=== PATIENT | female | born 1970 | race Caucasian/White ===

== ENCOUNTER 2017-07-24 01:27 | Emergency (ER) | payer BC ==
[~2017-07-24] VITALS: Ht 174 cm; Wt 81.5 kg
[~2017-07-24 01:27] MED LIST: ASPI81TA3 PO; METO-448 PO
[2017-07-24 01:36] VITALS: Ht 174 cm; Wt 81.5 kg
[2017-07-24] MEDS ORDERED: HYDROmorphONE 1 MG/ML SYG IV STA (02:25)
[2017-07-24] MEDS ORDERED: ONDANSETRON 4 MG INJ IV STA (02:25)
[2017-07-24] MEDS ORDERED: AZIT250T6 PO (02:49)
[2017-07-24] MEDS ORDERED: MULTI PO (02:49)
[2017-07-24 03:06] LABS: ABNORMAL IP MESSAGE 1; BASOPHILS % 0.4 % (0.0-2.0); EOSINOPHILS # 0.1 10^3/ul (0.0-0.5); HEMATOCRIT 33.3 % (37.0-47.0); HEMOGLOBIN 10.8 g/dl (12.0-16.0); LYMPHOCYTES # 0.6 10^3/ul (0.8-2.9); LYMPHOCYTES % 5.2 % (15.0-51.0); MEAN CORPUSCULAR HEMOGLOBIN 27.8 pg (29.0-33.0); MEAN CORPUSCULAR HGB CONC 32.4 g/dl (32.0-37.0); MEAN CORPUSCULAR VOLUME 85.8 fl (82.0-101.0); MEAN PLATELET VOLUME 9.5 fl (7.4-10.4); MONOCYTE # 0.6 10^3/ul (0.3-0.9); MONOCYTES % 5.3 % (0.0-11.0); NEUTROPHILS % 87.8 % (39.0-77.0); PLATELET COUNT 247 10^3/UL (140-415); RED BLOOD COUNT 3.88 10^6/ul (4.20-5.40); RED CELL DISTRIBUTION WIDTH 13.1 % (11.5-14.5); WHITE BLOOD COUNT 10.8 10^3/ul (4.8-10.8)
[2017-07-24 03:10] LABS: POSITIVE DIFF @See below
[2017-07-24 03:21] LABS: ALBUMIN 3.8 g/dl (3.3-4.9); ALBUMIN/GLOBULIN RATIO 1.18; BILIRUBIN,INDIRECT 0.3 mg/dl (0-1.1); BILIRUBIN,TOTAL 0.3 mg/dl (0.2-1.3); CALCIUM 8.9 mg/dl (8.4-10.2); CREATININE 0.95 mg/dl (0.44-1.00); POTASSIUM 3.4 mmol/L (3.5-5.1)
--- NOTE | 2017-07-24 03:22 | RADRPT ---
PROCEDURE: ULTRASOUND LIMITED ABDOMEN CLINICAL INDICATION: 47-year-old female with abdominal pain. TECHNIQUE: Multiple sonographic of the right upper quadrant of the abdomen were obtained. The imag es were reviewed on a PACS workstation. COMPARISON: None. FINDINGS: The pancreas is partially visualized and is otherwise without abnormal echogenicity. The liver displays normal echogenicity. The liver measures cm in length. No evidence of intrahepat ic biliary ductal dilatation is seen. The portal and hepatic veins are unremarkable. The gallbladder is filled with echogenic sludge and shadowing stones. The gallbladder wall thicknes s is within normal limits measuring 2.8 mm. No pericholecystic fluid is seen. The common bile duct m easures 2.8 mm and is not dilated. The right kidney displays normal echogenicity. The right kidney measures 11.1 cm in maximal length. No caliectasis or hydronephrosis is seen. No free fluid is seen. IMPRESSION: Cholelithiasis. .Gerardo Preston MD, MD Date Time Electronically viewed and signed by .Gerardo Preston MD, on 07/24/2017 03:21 .M/
[2017-07-24] MEDS ORDERED: TRAM50TA2 PO (04:07)
[2017-07-24] MEDS ORDERED: DICY10CA60 PO (04:07)
--- NOTE | 2017-07-24 04:09 | ERD ---
ER Documentation Chief Complaint Date/Time DATE: 07/24/17 TIME: 04:08 Chief Complaint RUQ belly pain radiating to the back 30 mins ago, hx gastric bypass HPI Is a 47-year-old female complains of pain in the epigastric and right upper quadrant region radiating to the right back onset a few hours prior to arrival. She says she has had this off and on for several months now. She does seem to be associated after food intake. She is nauseated but no vomiting no diarrhea she does have some bloating no chest pain shortness of breath. Pain described as sharp and crampy. ROS All systems reviewed and are negative except as per history of present illness. Medications Home Meds Active Scripts Tramadol HCl (Tramadol HCl) 50 Mg Tablet, 50 MG PO Q6, #20 TAB Prov:VICKIE HERNANDEZ DO 07/24/17 Dicyclomine Hcl* (Bentyl*) 10 Mg Capsule, 20 MG PO QID, #60 CAP Prov:VICKIE HERNANDEZ DO 07/24/17 Reported Medications Multivitamins* (Theragran*) 1 Tab Tab, 1 TAB PO DAILY, TAB 07/24/17 Azithromycin* (Azithromycin*) 250 Mg Tablet, 250 MG PO DAILY, #4 TAB 07/24/17 Discontinued Scripts Metoprolol Tartrate* (Lopressor*) 25 Mg Tab, 12.5 MG PO BID for 30 Days, TAB Prov:PAOLA CARDOZA MD 07/06/15 Aspirin (Aspirin) 81 Mg Chew, 81 MG PO DAILY for 30 Days, TAB Prov:PAOLA CARDOZA MD 07/06/15 Allergies Allergies: Coded Allergies: codeine (Unverified Allergy, Severe, VOMITING, 07/24/17) PMhx/Soc History of Surgery: Yes (; GASTRIC BYPASS- 14YRS AGO) Anesthesia Reaction: No Hx Neurological Disorder: No Hx Respiratory Disorders: No Hx Cardiac Disorders: No Hx Psychiatric Problems: Yes (DEPRESSION) Hx Miscellaneous Medical Probl: No Hx Alcohol Use: No Hx Substance Use: No Hx Tobacco Use: No Smoking Status: Never smoker FmHx Family History: No coronary disease Physical Exam Vitals Vital Signs Date Time Temp Pulse Resp B/P Pulse Ox O2 Delivery O2 Flow Rate FiO2 07/24/17 03:39 63 18 120/77 95 Room Air 8/31/17 01:36 98.1 58 18 122/60 98 Physical Exam Const: Well-developed, well-nourished Head: Atraumatic, normocephalic Eyes: Normal Conjunctiva, PERRLA, EOMI, normal sclera, no nystagmus ENT: Normal External Ears, Nose and Mouth, moist mucus membranes. Neck: Full range of motion. No meningismus, no lymphadenopathy. Resp: Clear to auscultation bilaterally, no wheezing, rhonchi, rales Cardio: Regular rate and rhythm, no murmurs, S1 S2 present Abd: Soft, epigastric and right upper quadrant tenderness non distended. Normal bowel sounds, no guarding or rebound, no pulsitile abdominal masses or bruits Skin: No petechiae or rashes, no ecchymosis , no maculopapular rash Back: No midline or flank tenderness Ext: No cyanosis, or edema, FROM x 4, normal inspection, neurovascularly intact x 4 Neur: Awake and alert, STR 5/5 x 4, sensation intact x 4, no focal findings, cerebellum intact Psych: Normal Mood and Affect Result Diagram: 07/24/17 0240 07/24/17 0240 Results 24 hrs Laboratory Tests Test 07/24/17 02:40 White Blood Count 10.810^3/ul Red Blood Count 3.8810^6/ul Hemoglobin 10.8g/dl Hematocrit 33.3% Mean Corpuscular Volume 85.8fl Mean Corpuscular Hemoglobin 27.8pg Mean Corpuscular Hemoglobin Concent 32.4g/dl Red Cell Distribution Width 13.1% Platelet Count 74535^3/UL Mean Platelet Volume 9.5fl Neutrophils % 87.8% Lymphocytes % 5.2% Monocytes % 5.3% Eosinophils % 1.0% Basophils % 0.4% Nucleated Red Blood Cells % 0.0/100WBC Neutrophils # (Manual) 9.510^3/ul Lymphocytes # 0.610^3/ul Monocytes # 0.610^3/ul Eosinophils # 0.110^3/ul Basophils # 0.010^3/ul Nucleated Red Blood Cells # 0.010^3/ul Sodium Level 142mmol/L Potassium Level 3.4mmol/L Chloride Level 100mmol/L Carbon Dioxide Level 29mmol/L Anion Gap 16 Blood Urea Nitrogen 16mg/dl Creatinine 0.95mg/dl Glucose Level 187mg/dl Calcium Level 8.9mg/dl Total Bilirubin 0.3mg/dl Direct Bilirubin 0.00mg/dl Indirect Bilirubin 0.3mg/dl Aspartate Amino Transf (AST/SGOT) 380IU/L Alanine Aminotransferase (ALT/SGPT) 118IU/L Alkaline Phosphatase 146IU/L Total Protein 7.0g/dl Albumin 3.8g/dl Globulin 3.20g/dl Albumin/Globulin Ratio 1.18 Lipase 245U/L Current Medications Medications (Trade) Dose Ordered Sig/Sabine Route PRN Reason Start Time Stop Time Status Last Admin Dose Admin Hydromorphone HCl (Dilaudid) 1 mg ONCE STAT IV 07/24/17 02:25 07/24/17 02:26 DC 07/24/17 02:43 Ondansetron HCl (Zofran Inj) 4 mg ONCE STAT IV 07/24/17 02:25 07/24/17 02:26 DC 07/24/17 02:43 Procedures/MDM PROCEDURE: ULTRASOUND LIMITED ABDOMEN CLINICAL INDICATION: 47-year-old female with abdominal pain. TECHNIQUE: Multiple sonographic of the right upper quadrant of the abdomen were obtained. The images were reviewed on a PACS workstation. COMPARISON: None. FINDINGS: The pancreas is partially visualized and is otherwise without abnormal echogenicity. The liver displays normal echogenicity. The liver measures cm in length. No evidence of intrahepatic biliary ductal dilatation is seen. The portal and hepatic veins are unremarkable. The gallbladder is filled with echogenic sludge and shadowing stones. The gallbladder wall thickness is within normal limits measuring 2.8 mm. No pericholecystic fluid is seen. The common bile duct measures 2.8 mm and is not dilated. The right kidney displays normal echogenicity. The right kidney measures 11.1 cm in maximal length. No caliectasis or hydronephrosis is seen. No free fluid is seen. IMPRESSION: Cholelithiasis. .Gerardo Preston MD, MD Date Time Electronically viewed and signed by .Gerardo Preston MD, on 07/24/2017 03:21 .M/ CC: VICKIE HERNANDEZ DO Told signs and symptoms to return. Her pain is completely resolved at this point. Follow-up with general surgery Departure Diagnosis: Primary Impression: Gallstones Condition: Stable Patient Instructions: What Are Gallstones?, Gallstones Referrals: LIDIA MULLINS APOSTOLOS A. DO Jul 24, 2017 04:09
[2017-07-24 04:18] VITALS: BP 120/77; PULSE 61; RESP 17; TEMP 98.6
== END 2017-07-24 04:20 | disposition home or self-care (01) ==
LOC: E/R 01:27
DX: K80.20 Calculus of gallbladder without cholecystitis without obstruction (principal)
CPT/HCPCS: 36415; 76705; 80053; 83690; 85025; 96374; 96375; J1170; J2405; Z7502; Z7610